=== PATIENT | female | born 1960 | race Caucasian/White ===

== ENCOUNTER 2019-04-16 09:45 | Inpatient (IN) | payer MEDICARE ==
[2019-04-16] MEDS ORDERED: Piperacillin/Tazobactam 3.375 GM VIAL ONE (11:31)
[2019-04-16 11:33] LABS: #Basophils 0.1 thou/uL (0.0-0.2); #Lymphocytes 1.1 thou/uL (1.20-3.40); #Monocytes 0.7 thou/uL (0.11-0.59); #Neutrophils 11.6 thou/uL (1.40-6.50); %Basophils 0.5 % (0.0-1.0); %Eosinophils 0.3 % (0.0-10.0); %Lymphocytes 8.4 % (21.0-51.0); %Monocytes 5.4 % (0.0-10.0); %Neutrophils 85.4 % (42.0-75.0); Hemoglobin 9.7 g/dL (12.0-16.0); Mean Corpuscular HGB CONC 31.4 g/dL (32.0-36.0); Mean Corpuscular Volume 79.7 fL (78.0-98.0); Mean Platelet Volume 6.7 fL (7.4-10.4); Platelet Count 416 thou/uL (130-400); RBC Distribution Width 14.6 % (11.5-14.5); Red Blood Cell (RBC) Count 3.87 mill/uL (4.20-5.40); White Blood Cell (WBC) Count 13.5 thou/uL (4.8-10.8)
--- NOTE | 2019-04-16 11:36 | RAD ---
EXAM: CHEST ONE VIEW HISTORY: Dyspnea, sepsis. COMPARISON: None FINDINGS: The levoscoliotic cardiac pacemaking device noted in place. Pulmonary vasculature cardiac silhouette are within normal limits. There is increased density seen in the retrocardiac region left lung base with adjacent interstitial densities. Findings are worrisome for infection/pneumonia. Follow-up to re solution is recommended. The right lung remains clear. Osteopenia. IMPRESSION: Left lower lobe retrocardiac opacity with adjacent interstitial densities worrisome for pneumonia. Fo llow-up to complete resolution is recommended.
[2019-04-16 12:39] LABS: Bilirubin Small (Negative); Blood, Urine Large (Negative); Clarity Opaque (Clear); Glucose, Urine (Dipstick) Negative (Negative); Leukocyte Large (Negative); Nitrite Negative (Negative); Protein, Urine (Dipstick) > or equal to 300 mg/dL (Neg-Trace); Urobilinogen 0.2 mg/dL (Less than 2)
[2019-04-16 12:45] LABS: ALT (SGPT) 14 U/L (8-55); AST (SGOT) 13 U/L (5-34); Albumin 2.7 g/dL (3.5-5.0); Alkaline Phosphatase 138 U/L (40-110); Anion Gap 15 mmol/L (10-20); BUN (Urea Nitrogen) 26 mg/dL (9.8-20.1); Bilirubin, Total 0.3 mg/dL (0.2-1.2); CK (CPK) 27 U/L (29-168); Calc. Creatinine Clearance 0 mL/min (70-130); Calcium 8.5 mg/dL (7.8-10.44); Carbon Dioxide 15 mmol/L (22-29); Chloride 102 mmol/L (98-107); Estimated GFR-MDRD Greater than 90; Globulin 4.1 g/dL (2.4-3.5); Glucose 116 mg/dL (70-105); Potassium 4.3 mmol/L (3.5-5.1); Protein, Total 6.8 g/dL (6.0-8.3); Sodium 128 mmol/L (136-145)
[2019-04-16 12:57] LABS: WBC/HPF Greater Than 50 HPF (0-3)
[2019-04-16 12:58] LABS: Bacteria/HPF 3+ HPF (None Seen)
[2019-04-16] MEDS ORDERED: CCU Electrolyte Replacement 1 EACH FS ONE (13:16)
[2019-04-16] MEDS ORDERED: Acetaminophen 325 MG TAB PO PRN (13:28)
[2019-04-16] MEDS ORDERED: Guaifenesin DM 100-10/5 ML UDCUP PO PRN (13:28)
[2019-04-16] MEDS ORDERED: Ondansetron PF 4 MG/2 ML Vial IVP PRN (13:28)
[2019-04-16] MEDS ORDERED: Senokot S 8.6-50 MG TAB PO PRN (13:28)
[2019-04-16] MEDS ORDERED: Norepinephrine 8 MG/0.9% NS 250 ML ONE (13:36)
[2019-04-16] MEDS: Sodium Chloride 0.9% 1,000 ML IV SCH ×2 (14:50→23:31)
[2019-04-16 15:58] VITALS: BMI 16.9
--- NOTE | 2019-04-16 16:18 | CON ---
DATE OF CONSULTATION: HISTORY OF PRESENT ILLNESS: Maggy Torre is a 58-year-old custodial resident of 15 years duration, who was transferred here with shortness of breath as per the sister, who nominated as a power of tax associate attorney, she is in the custodial for multiple sclerosis. In the ER, she presented with shortness of breath, received Levophed, vancomycin, Zosyn, and normal saline. She is now in the ICU. The patient is clearly very demented, not able to give any history. Not walked for 15 years. PAST MEDICAL HISTORY: Pertinent for multiple sclerosis, apparently hepatitis, chronic dementia, constipation, coronary artery disease, depression. She has an AICD in place. She has a pacemaker inserted some time long, unclear when it was done. HOME MEDICATIONS: Include; 1. Cymbalta 60. 2. Trazodone. ALLERGIES: APPARENTLY UNKNOWN. PHYSICAL EXAMINATION: VITAL SIGNS: Pulse 78, blood pressure 90/80, saturations are 90% on couple of liters, respirations 16. CHEST: Decreased breath sounds. No wheezing. CARDIAC: Normal S1 and S2. No gallops. ABDOMEN: Soft. DIAGNOSTIC STUDIES: X-rays normal. She has a very large DECUBUTIS_sodium is 128. Lytes are normal. Albumin is low at 2.7. BNP is normal. Urine shows wbc's greater than 50. White count 13,000, platelet count is normal. IMPRESSION: 1. Chronic obstructive pulmonary disease exacerbation. 2. Dementia. 3. Multiple sclerosis, bedridden for 15 years. 4. Cachexia . Adequate antibiotics, stress dose of steroids initiated. Continue with neb treatments, supportive care. This is a 45-minute critical time. We will follow. Job ID: [id number] [facility]
[2019-04-16] MEDS ORDERED: PHOS-NAK 1 PKT PACK PO PRN ×2 (17:51)
[2019-04-16] MEDS ORDERED: Potassium Phosphate 9 MMOL in Sodium Chloride 0.9% 100 ML IVPB PRN (17:51)
[2019-04-16] MEDS ORDERED: Potassium Chloride 40 MEQ in Premix Bag 1 BAG IVPB PRN (17:51)
[2019-04-16] MEDS ORDERED: Magnesium 2 GM/50 ML 2 GM in Premix Bag 1 BAG IVPB PRN (17:51)
[2019-04-16] MEDS ORDERED: CCU ELECTROLYTE REPLACEMENT PROTOCOL FS PRN (17:51)
[2019-04-16] MEDS ORDERED: Potassium Phosphate 12 MMOL in Sodium Chloride 0.9% 250 ML 250 ML IV PRN (17:51)
[2019-04-16] MEDS ORDERED: Magnesium Oxide 400 MG TAB PO PRN ×2 (17:51)
[2019-04-16] MEDS ORDERED: Potassium Chloride 20 MEQ TAB PO PRN (17:51)
[2019-04-16] MEDS ORDERED: Potassium Chloride 40 MEQ in Sodium Chloride 0.9% 250 ML 250 ML IVPB PRN (17:51)
[2019-04-16] MEDS ORDERED: Potassium Phosphate 15 MMOL in Sodium Chloride 0.9% 250 ML 250 ML IV PRN (17:51)
[2019-04-16] MEDS: Hydrocortisone Sod Succ/PF 100 mg/2 ml Vial IVP SCH ×2 (18:10→23:19)
[2019-04-16] MEDS ORDERED: Cefepime 2 GM VIAL IVPB SCH (18:15)
--- NOTE | 2019-04-16 19:03 | CON ---
DATE OF CONSULTATION: HISTORY OF PRESENT ILLNESS: Maggy Torre is a 58-year-old female, severely demented, nonambulatory, has decubitus, right hip and sacrum. She has been admitted with a white count of 13, hemoglobin 9.7, BUN 26, creatinine 0.59. I have been asked to see her regarding evaluation. Dr. Gates has seen her. The patient's blood pressure is 97/68, heart rate 96. Apparently, the patient's children are incarcerated. Her sister is available and Palliative Care consult has been made. The patient is a full code today. The patient does not give any meaningful history due to her confusion. She does articulate comprehensible words, but she is confused. I have been asked to see her regarding her sacral decubitus. On admission in the emergency room, chest x-ray was obtained and findings consistent with pneumonia. Urinalysis obtained reveals a large urine leukocyte esterase, 11 to 20 red cells, 3+ bacteria, nitrite negative, 1.025 specific gravity. The patient is admitted with confusion, BHUMIKA, pneumonia, sepsis. She is in ICU. I have been asked to see her regarding her decubitus. Evaluation of her sacral decubitus reveals it is superficial and early, there is no need for debridement. Her right hip, however, reveals that over her greater trochanter femur joe, there is a deep decubitus exposing the bone. There is necrotic tissue. At the bedside, this was debrided sharply, subcutaneous tissue and skin. ASSESSMENT AND PLAN: Stage IV decubitus, right hip with exposed femur. There is nothing surgically that I can do for this patient. She would need a hip disarticulation and she is too sick to tolerate that. I suggest palliative care, DNR status, and hospice care. I will see the patient as needed. Wound Care can follow her. Job ID: [id number]
--- NOTE | 2019-04-16 19:17 | HP ---
PRESENTING COMPLAINT: Altered mental status, hypoxia, and hypotension. HISTORY OF PRESENT ILLNESS: The patient with a past medical history of multiple sclerosis, chronic hepatitis, history of motor sensory neuropathy, history of dementia, osteoarthritis, status post pacemaker placement, long term resident , was sent from long term due to altered mental status, and upon EMS arrival, the patient was found to be awake, oriented in place and person, and the patient was hypotensive, blood pressure 88/48, and in the emergency room, the patient was placed on NRB and oxygen saturation improved to 95%. The patient is currently having oxygen saturation of 96% on 2 L, oriented in place and person. Denies any active complaint at present. Denies any chest pain. No shortness of breath, nausea, vomiting, diarrhea or abdominal pain. Complains of soreness in her sacral ulcers. Also, the patient was placed Francis catheter in the emergency room, which showed cloudy urine. The patient was given antibiotics in the emergency room, Zosyn and vancomycin. The patient was also given 2 L fluids. Currently, blood pressure is 97/61 and oxygen saturation is 100% on 2 L. PHYSICAL EXAMINATION: GENERAL: The patient with generalized wasting, clinically looks dehydrated, lying in bed comfortably in no distress. HEENT: Conjunctivae normal. Oral mucosa dry. NECK: Supple. No JVD. No lymphadenopathy. CHEST: Normal vesicular breathing. Decreased air entry in left lower lung field. HEART: Heart sound is normal. ABDOMEN: Mildly distended. Bowel sounds audible. No rebound or guarding. EXTREMITIES: Negative edema of feet. Foot drop noted. SKIN: Stage IV sacral ulcer with slough noted, another sacral ulcer noted. SYSTEMIC REVIEW: As mentioned above. PAST MEDICAL HISTORY: As mentioned above. SURGICAL HISTORY: History of pacemaker. SOCIAL HISTORY: No history of smoking, alcohol abuse or drug abuse. HOME MEDICATIONS: Currently not available from long term. LABORATORY DATA: CBC unremarkable except white blood cells of 13.5, hemoglobin of 9.7, platelet of 416. CMP unremarkable except for sodium of 128, creatinine of 0.59, BUN of 26, carbon dioxide of 15, and blood glucose of 116. Lactic acid of 1.8. Alkaline phosphatase of 138, albumin 2.7. Blood culture pending. Urine culture pending. UA; white blood cells greater than 50, rbc's 11-20, leuk esterase is large. Chest x-ray, left lower lobe retrocardiac opacity with adjacent interstitial densities, worrisome for pneumonia. EKG; normal sinus rhythm, low-voltage EKG, and nonspecific ST-T changes. IMPRESSION: 1. Possible severe sepsis secondary to left lower lung pneumonia with acute urinary tract infection and possible infected sacral ulcers. We will continue broad-spectrum antibiotics, vancomycin and cefepime at present. We will get Infectious Disease evaluation. The patient will be admitted to ICU. We will continue fluid resuscitation. The patient is status post 2 L bolus given in the emergency room, currently getting IV fluid at 125 mL/hr. The patient was placed central line in the emergency room. We will continue ICU monitoring. Start pressors . Follow up blood culture and urine culture. 2. Possible infected sacral ulcer. We will get surgery evaluation if the patient needs debridement. 3. Hyponatremia, most likely related to dehydration. We will continue fluids and monitor BMP. 4. Acute metabolic and toxic encephalopathy, possibly secondary to severe sepsis. We will continue to monitor mental status. 5. Possible severe protein-calorie malnutrition. The patient has generalized wasting. We will continue nutritional support. 6. History of multiple sclerosis. Continue supportive care. 7. History of hypertension. Hold antihypertensive medication at present. 8. History of motor sensory polyneuropathy. Continue supportive care. 9. History of pacemaker placement. 10. Deep venous thrombosis and gastrointestinal prophylaxis. Plan discussed with the nursing staff. Prognosis is guarded. Job ID: [id number] [facility]
[2019-04-16] MEDS: Famotidine 20 MG TAB PO SCH (20:37)
[2019-04-16] MEDS ORDERED: Vancomycin HCl 750 MG in Sodium Chloride 0.9% 250 ML 250 ML IVPB SCH (23:00)
[2019-04-17 03:21] LABS: Actual Bicarbonate (HCO3a) 2.6 mEq/L (22-28); Base Excess (BEa) -29.2 mEq/L (-2.0 to +3.0); Carboxyhemoglobin (COHb) 1.7 gm% (0.0-3.0); Hemoglobin (Hb) 8.7 g/dL (12.0-16.0); O2 Tension (PaO2) 106.7 mmHg (> 80.0); Potassium - ABG Lab 6.56 mmol/L (3.70-5.30)
[2019-04-17 03:23] LABS: pH, Arterial 6.85 (7.35-7.45)
[2019-04-17 03:24] LABS: Puncture Site RR
[2019-04-17] MEDS ORDERED: Sodium Bicarb 50 MEQ/50 ML VIAL ONE ×3 (03:25→03:38)
[2019-04-17 03:27] LABS: Lactic Acid 12.3 mmol/L (0.5-2.2)
[2019-04-17 03:28] LABS: ALT (SGPT) 53 U/L (8-55); AST (SGOT) 145 U/L (5-34); Albumin 2.7 g/dL (3.5-5.0); Alkaline Phosphatase 491 U/L (40-110); BUN (Urea Nitrogen) 23 mg/dL (9.8-20.1); Bilirubin, Total 0.7 mg/dL (0.2-1.2); Calc. Creatinine Clearance 49 mL/min (70-130); Calcium 7.8 mg/dL (7.8-10.44); Carbon Dioxide Less than 8 mmol/L (22-29); Chloride 108 mmol/L (98-107); Estimated GFR-MDRD 78; Globulin 3.2 g/dL (2.4-3.5); Glucose 409 mg/dL (70-105); Potassium 6.2 mmol/L (3.5-5.1); Protein, Total 5.9 g/dL (6.0-8.3); Sodium 129 mmol/L (136-145)
[2019-04-17 03:31] LABS: Band 6 % (5-11); Hemoglobin 8.6 g/dL (12.0-16.0); Hypochromia SLIGHT = 6-15 cells (100X) (0-5/hpf); Lymphocytes 8 % (21-51); MDiff Complete? YES; Mean Corpuscular HGB CONC 29.8 g/dL (32.0-36.0); Mean Corpuscular Hemoglobin 25.3 pg (27.0-31.0); Mean Platelet Volume 6.8 fL (7.4-10.4); Metamyelocyte 1 % (0-0); Monocytes 2 % (0-10); Neutrophil 83 % (42-75); Platelet Count 389 thou/uL (130-400); Platelet Morphology Comment Appears Adequate; RBC Distribution Width 14.7 % (11.5-14.5); Red Blood Cell (RBC) Count 3.37 mill/uL (4.20-5.40); White Blood Cell (WBC) Count 18.2 thou/uL (4.8-10.8)
[2019-04-17] MEDS ORDERED: Sodium Bicarbonate 150 MEQ in Dextrose 5% in Water 1,000 ML IV SCH (03:45)
[2019-04-17] MEDS ORDERED: Sodium Chloride 0.9% 500 ML IVPB SCH (03:45)
[2019-04-17] MEDS ORDERED: Sodium Bicarb 50 MEQ/50 ML VIAL IVP SCH (03:45)
--- NOTE | 2019-04-17 03:50 | PDOC.EVN ---
Event Note - Event Note Event Note: HOSPITALIST EVENT NOTE received a page earlier that patient had a change in rhythm with QRS widening 160 msec patient examined at bedside. pale, mottling, cool extremities, mydriatic pupils , tachypneic. noted admitted earlier today for septic shock and decubitus wounds. on levophed drip which was recently increased. nonsurgical option per surgeon noted. stat ABG, lactic acid, and labs obtained tried to call sister (POKumar) Linda at [phone] and went to [facility] which was full ABG ph 6.8 lactic acid 12.3 serum bicarb <8 2 amps stat [id number] given, and additional 2 amps given later. ordered [id number] awaiting from pharmacy in interim patient further hypotensive with maximal levophed and awaiting ordered neosynephrine drip called surrogate decision maker/TORRIEKumar clancy again who was en route to hospital after nurses were able to get hold of her saw patient and sister (STEFANI) at bedside and discussed poor prognosis and need to consider palliative measures. sister agreed and wanted patient DNR and DNI. nursing staff present in room to witness. patient somnolent and unresponsive but still with pulse imminent. no further escalation of therapies. start prn IV morphine and prn IV ativan for comfort measures. sbp 80/60's on maximal levophed drip, pulse 80-110s, rr 8-10 gen: frail female obtunded and minimally responsive, pale in appearance heent: NCAT, Pupils mydriatic, no facial asymmetry cvs: s1 and s2 tachycardic resp: bradypnea, poor inspiratory effort abd: soft, nontender extr: pale, cool to touch, mottled skin: limited visualization gu: oliguric with mclaughlin cumulative critical care time: 50 minutes
[2019-04-17] MEDS ORDERED: Lorazepam 2 MG/ML VIAL SLOW IVP PRN ×2 (03:52→05:09)
[2019-04-17] MEDS ORDERED: Morphine 4 MG/ML VIAL SLOW IVP PRN (03:53)
[2019-04-17] MEDS: Norepinephrine 8 MG/0.9% NS 250 ML IVPB SCH ×2 (04:03→07:49)
[2019-04-17 04:12] VITALS: TEMP 96.5
[2019-04-17] MEDS ORDERED: Cefepime 2 GM VIAL IVPB SCH (06:00)
[2019-04-17] MEDS: Hydrocortisone Sod Succ/PF 100 mg/2 ml Vial IVP SCH (06:10)
[2019-04-17] MEDS: Sodium Chloride 0.9% 1,000 ML IV SCH (07:15)
[2019-04-17] MEDS ORDERED: FLU VACC QS2019-20(6MOS UP)/PF 60 MCG/0.5 ML SYRINGE IM ONE (09:00)
[2019-04-17] MEDS ORDERED: Enoxaparin Sodium 40 MG/0.4 ML SYRINGE SC SCH (09:00)
[2019-04-17] MEDS ORDERED: Prevnar 13-Val Conj/PF 0.5 ML SYRINGE IM ONE (09:00)
--- NOTE | 2019-04-17 09:11 | PRG ---
DATE OF SERVICE: 04/17/2019 SUBJECTIVE: This morning, she is unresponsive, pupils are dilated, unable to get much of a blood pressure. OBJECTIVE: VITAL SIGNS: Saturations are 92%, heart rate is 100, and temperature is 92.7. CHEST: Rhonchi. CARDIAC: Sinus tachycardia. ABDOMEN: Soft. LABORATORY DATA: Blood gases yesterday show severe metabolic acidosis with a pH of 6.85 and a bicarb less than 8. Lactic acid was elevated. She is probably septic from very large decubitus ulcer. Her sister who is a power of insurance attorney has made her a DNR, which I agreed. Discussed with the nurse last night. IMPRESSION: 1. Sepsis syndrome, severe metabolic acidosis. 2. Terminal respiratory failure. PLAN: Comfort care. She is a DNR. Job ID: [id number]
[2019-04-17] MEDS: Famotidine 20 MG TAB PO SCH (10:53)
--- NOTE | 2019-04-17 20:39 | DIS ---
DATE OF ADMISSION: 04/16/2019 DATE OF DISCHARGE: 04/17/2019 DISCHARGE DIAGNOSES: 1. Septic shock. 2. Severe lactic acidosis. 3. Acute hypoxemic respiratory failure secondary to pneumonia. 4. Acute urinary tract infection. 5. Possible infected sacral ulcer. 6. Acute metabolic and toxic encephalopathy. 7. Hyponatremia. 8. Possible severe protein calorie malnutrition. 9. History of multiple sclerosis. 10. Hypertension. 11. History of motor sensory polyneuropathy. 12. History of pacemaker placement. 13. Bed-bound status. LABORATORY DATA: White blood cell 18.2, hemoglobin 8.6, platelet 389. Blood gas 6.85, 15, 106. Sodium 129, potassium 6.2, chloride 108, BUN 23, creatinine 0.76 , glucose 409, lactic acid 12.3, ALT 53, AST 145, cortisol 15.6. BNP 63. 491. UA; white blood cells greater than 50, rbc's 11-20. Urine culture, gram-negative rods. Blood culture, negative. Chest x-ray, left lower lobe infiltrate. HOSPITAL SUMMARY: The patient, Nicho Winter, known case of multiple sclerosis , bed-bound status as per sister, presented with altered mental status, hypoxia, and borderline low blood pressure. The patient admitted to ICU with severe sepsis secondary to pneumonia, acute urinary tract infection, and possible infected stage IV ulcer. The patient started on pressor, broad-spectrum antibiotics. General Surgery, Pulmonology, and Infectious Disease were consulted. The patient admitted to ICU; however, patient condition got worse, had developed severe lactic acidosis and hypotension. The patient unable to maintain her blood pressure. The patient sister Linda germ drier Dr. Gates spoke and chaged code to DNR/DNI , and I also spoke with a friend on the phone, who has been POA in the past, but from not last one year she is not , patient had daughter and son, who as per sister and friend are in the custodial and I and Dr Gates explained to sister and friend patient's poor prognosis. SisterLinda decided to go for DNR and comfort care. I spoke with Dr. Gates. The patient had poor prognosis with no BP on pressors and agonal breathing and was changed to comfort care and . Job ID: [id number] [facility]
--- NOTE | 2019-04-19 11:21 | OP ---
DATE OF PROCEDURE: 04/16/2019 PREOPERATIVE DIAGNOSES: Severe dementia, decubitus right hip, sacrum, and pneumonia. POSTOPERATIVE DIAGNOSES: Severe dementia, decubitus right hip, sacrum, and pneumonia. PROCEDURES PERFORMED: Debridement of gangrenous skin and subcutaneous tissue and connective tissue overlying the right femoral head. This exposed the femur. DESCRIPTION OF PROCEDURE: A gauze dressing was applied. At this point, we would recommend hospice care. DNR status. The patient would not tolerate a hip disarticulation. I will see her as needed. Please call if necessary. Job ID: [id number]
--- NOTE | 2019-04-20 19:26 | PQF ---
JOSE NG RICHARD D MD [id number] CLINICAL DOCUMENTATION CLARIFICATION FORM: POST DISCHARGE Addendum to original discharge summary date: ____ Late entry note date: __ DATE: 04/20/19 ATTN:Ector Ruff Please exercise your independent, professional judgment in responding to the clarification form. Clinical indicators are provided on the bottom of this form for your review Can you please further clarify the type and depth of debridement? Please check appropriate box(s): [ ] Excisional Debridement: [ ] Excised [ ] Cut away [ ] Other: Depth / layer: (deepest layer of debridement): [ ] Skin[ ] SubQ Tissue [ ] Fascia [ ] Muscle [ ] Tendon [ ] Bone Appearance of wound: (e.g., down to fresh bleeding tissue, etc.)___ Margins: (please specify): / x x Instruments used: [ ] Scissors [ ] Scalpel [ ] Curette [ ] Soft tissue clipper [ ] Other: [ ] Non-excisional Debridement: (Removal by flushing, brushing, chemical, or washing) Depth / layer: (deepest layer of debridement): [ ] Skin[ ] Subcutaneous [ ] Fascia [ ] Muscle [ ] Tendon [ ] Bone [ ] Incision and Drainage only (No Debridement): Depth:[ ] Skin [ ] Subcutaneous [ ] Fascia [ ] Muscle [ ] Tendon [ ] Bone [ ] Other procedure diagnosis [ ] Unable to determine In addition, please specify: Approach: [ ] Open [ ] percutaneous [ ] percutaneous endoscopic [ ] other please specify For continuity of documentation, please document condition throughout progress notes and discharge summary. Thank You. CLINICAL INDICATORS - SIGNS / SYMPTOMS / LABS Op Report 04/16 pg.1- Debridement of gangrenous skin and subcutaneous tissue and connective tissue overlying the femoral head. This exposed the femur OP report pg.1- a gauze dressing was applied RISK FACTORS Decubitus right hip- OP report pg.1 Bed bound status-DS pg.1 Septic shock- DS pg.1 Possible infected sacral ulcer TREATMENTS: Debridement- OP report 04/16 Broad spectrum antibiotics- DS pg.1 IV fluids- MAR General Surgery consult- 04/16 (This form is maintained as a part of the permanent medical record) 2014 [id number]. All Rights Reserved Ananda [email or web address] [not provided] MTDD
--- NOTE | 2019-04-21 17:46 | EKG ---
Test Reason : STAT Blood Pressure : / mmHG Vent. Rate : 127 BPM Atrial Rate : 127 BPM P-R Int : 144 ms QRS Dur : 084 ms QT Int : 284 ms P-R-T Axes : 080 060 109 degrees QTc Int : 412 ms Sinus tachycardia Low voltage QRS Cannot rule out Anterior infarct , age undetermined Abnormal ECG No previous ECGs available Confirmed by DR. Akhil WALKER ([id number]) on 04/21/2019 5:45:49 PM Referred By: Confirmed By:DR. Akhil WALKER
--- NOTE | 2019-04-21 17:47 | EKG ---
Test Reason : STAT Blood Pressure : / mmHG Vent. Rate : 136 BPM Atrial Rate : 133 BPM P-R Int : 000 ms QRS Dur : 114 ms QT Int : 324 ms P-R-T Axes : 000 -74 089 degrees QTc Int : 487 ms Probable sinus tachycardia with incomplete LBBB Low voltage QRS Confirmed by DR. Akhil WALKER ([id number]) on 04/21/2019 5:46:55 PM [facility] Confirmed By:DR. Akhil WALKER
--- NOTE | 2019-04-24 10:54 | EKG ---
Test Reason : Blood Pressure : / mmHG Vent. Rate : 099 BPM Atrial Rate : 099 BPM P-R Int : 148 ms QRS Dur : 084 ms QT Int : 356 ms P-R-T Axes : 055 -01 059 degrees QTc Int : 456 ms Normal sinus rhythm Low voltage QRS Inferior infarct , age undetermined Possible Anterolateral infarct , age undetermined Abnormal ECG Baseline Artifact Present Confirmed by JAILYN GARCÍA, BRAYDEN Mayer ([id number]), legal editor NELLI MCDONALD ([id number]) on 04/24/2019 10:54:23 AM Referred By: Confirmed By:BRAYDEN GLASER MD
== END 2019-04-17 11:16 | disposition expired | DRG 871 ==
LOC: ERS 09:45 → CCU 13:28
PROVIDERS: ADMIT Specialist; ATTEND Specialist
PROC: 0JDL3ZZ Extraction of Right Upper Leg Subcutaneous Tissue and Fascia, Percutaneous Approach (ICD-10-PCS; principal; 2019-04-16)
DX: A41.9 Sepsis, unspecified organism (principal); L89.314 Pressure ulcer of right buttock, stage 4; L89.154 Pressure ulcer of sacral region, stage 4; G92 Toxic encephalopathy; E43 Unspecified severe protein-calorie malnutrition; J18.9 Pneumonia, unspecified organism; R65.21 Severe sepsis with septic shock; J96.01 Acute respiratory failure with hypoxia; E87.1 Hypo-osmolality and hyponatremia; Z68.1 Body mass index [BMI] 19.9 or less, adult; J44.1 Chronic obstructive pulmonary disease with (acute) exacerbation; J44.0 Chronic obstructive pulmonary disease with (acute) lower respiratory infection; R64 Cachexia; E87.2 Acidosis; N03.9 Chronic nephritic syndrome with unspecified morphologic changes; N17.9 Acute kidney failure, unspecified; N39.0 Urinary tract infection, site not specified; Z66 Do not resuscitate; Z51.5 Encounter for palliative care; G35 Multiple sclerosis; G62.9 Polyneuropathy, unspecified; F03.90 Unspecified dementia, unspecified severity, without behavioral disturbance, psychotic disturbance, mood disturbance, and anxiety; M19.90 Unspecified osteoarthritis, unspecified site; E86.0 Dehydration; I10 Essential (primary) hypertension; K73.9 Chronic hepatitis, unspecified; K59.00 Constipation, unspecified; I25.10 Atherosclerotic heart disease of native coronary artery without angina pectoris; F32.9 Major depressive disorder, single episode, unspecified; Z95.810 Presence of automatic (implantable) cardiac defibrillator; Z95.1 Presence of aortocoronary bypass graft; Z74.01 Bed confinement status; Z79.899 Other long term (current) drug therapy
CPT/HCPCS: 36556; 51702; 71045; 80053; 81003; 81015; 82533; 82550; 82805; 83605; 83880; 85025; 87040; 87077; 87086; 87186; 93005; 93010; 94640; 96361; 96365; 96367; 99292; J0692; J1720; J2270; J2405; J2543; J3370; J7050; J7070; J7620; P9045